=== PATIENT | male | born 1980 | race Caucasian/White ===

== ENCOUNTER 2017-11-15 16:03 | Inpatient (IN) | payer OTHER ==
[2017-11-15] MEDS ORDERED: PANTOPRAZOLE 40 MG/10 ML VIAL IVP STA (17:05)
[2017-11-15] MEDS ORDERED: SODIUM CHLORIDE 0.9% 1,000 ML IV ONE (17:05)
[2017-11-15] MEDS ORDERED: ONDANSETRON 4 MG/2 ML VIAL IVP STA (17:14)
--- NOTE | 2017-11-15 17:34 | ED ---
Psych HPI - General Source: patient, RN notes reviewed Mode of arrival: ambulatory <Lew Butler - Last Filed: 11/15/17 17:32> <Obi Ponce - Last Filed: 11/16/17 00:53> - General Chief Complaint: Psychiatric Symptoms Stated Complaint: poss alcohol poisening Time Seen by Provider: 11/15/17 17:04 - History of Present Illness Initial Comments: 37-year-old male presents emergency Department chief complaint of alcohol abuse , suicidal ideation. Patient states that he has been binging lately on vodka. Patient states he essentially has been drinking everyday since Monday. Patient admits to drinking a fifth of vodka today. Patient states he did have episode of emesis followed by multiple others and he felt that he saw some blood. Patient states that years ago he was told that he had very sees him [facility]. Patient states that they said no recurrence of bleeding and over a couple hours. Patient denies any current nausea, diarrhea constipation. He has mild epigastric discomfort. Denies any chest pain or shortness of breath. Patient states he is depressed worse with alcohol use and states that he is suicidal. (Lew Butler) - Related Data Home Medications Medication Instructions Recorded Confirmed Cetirizine HCl [Zyrtec] 10 mg PO DAILY 11/15/17 11/15/17 Previous Rx's Medication Instructions Recorded traZODone HCL [Desyrel] 100 mg PO HS #30 tab 07/13/15 Allergies Allergy/AdvReac Type Severity Reaction Status Date / Time blue dye Allergy Unknown Verified 11/15/17 17:27 pollen Allergy Unknown Uncoded 11/15/17 16:35 Review of Systems ROS Other: All systems not noted in ROS Statement are negative. <Lew Butler - Last Filed: 11/15/17 17:32> ROS Other: All systems not noted in ROS Statement are negative. <Obi Ponce - Last Filed: 11/16/17 00:53> ROS Statement: Those systems with pertinent positive or pertinent negative responses have been documented in the HPI. 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 Father Family Medical History: Liver Disease Additional Family Medical History / Comment(s): Father at age 53 from peritonitis with history of alcoholism. Brother(s) Additional Family Medical History / Comment(s): Brother has history of alcohol abuse. He does not have any sisters. He does not have any children. <Lew Butler - Last Filed: 11/15/17 17:32> General Exam Limitations: no limitations General appearance: alert, in no apparent distress Head exam: Present: atraumatic, normocephalic, normal inspection Eye exam: Present: normal appearance, PERRL, EOMI. Absent: scleral icterus, conjunctival injection, periorbital swelling ENT exam: Present: normal exam, normal oropharynx, mucous membranes moist Neck exam: Present: normal inspection. Absent: tenderness, meningismus, lymphadenopathy Respiratory exam: Present: normal lung sounds bilaterally. Absent: respiratory distress, wheezes, rales, rhonchi, stridor Cardiovascular Exam: Present: regular rate, normal rhythm, normal heart sounds. Absent: systolic murmur, diastolic murmur, rubs, gallop, clicks GI/Abdominal exam: Present: soft, tenderness (Mild epigastric), normal bowel sounds. Absent: distended, guarding, rebound, rigid Back exam: Absent: CVA tenderness (R), CVA tenderness (L) Neurological exam: Present: alert, oriented X3, CN II-XII intact <Lew Butler - Last Filed: 11/15/17 17:32> Vital Signs 11/15/17 16:31 Temperature 98.3 F Pulse Rate 106 H Respiratory 18 Rate Blood Pressure 134/103 O2 Sat by Pulse 96 Oximetry Medical Decision Making <Lew Butler - Last Filed: 11/15/17 17:32> - Lab Data Result diagrams: 11/15/17 17:28 11/15/17 17:28 <Obi Ponce - Last Filed: 11/16/17 00:53> - Medical Decision Making Patient's been observed here in the emergency room has had no nausea no vomiting. Admits he is feeling better. Patient did admit to having some suicidal thoughts. Patient's labs been reviewed are unremarkable. He was seen by psych services who recommends admission. Patient is willing to sign himself in. (Obi Ponce) - Lab Data Lab Results 11/15/17 11/15/17 11/15/17 Range/Units 17:28 17:28 17:28 WBC 7.6 (3.8-10.6) k/uL RBC 5.03 (4.30-5.90) m/uL Hgb 14.7 (13.0-17.5) gm/dL Hct 43.6 (39.0-53.0) % MCV 86.6 (80.0-100.0) fL MCH 29.1 (25.0-35.0) pg MCHC 33.6 (31.0-37.0) g/dL RDW 14.6 (11.5-15.5) % Plt Count 189 (150-450) k/uL Neutrophils % 43 % Lymphocytes % 44 % Monocytes % 6 % Eosinophils % 3 % Basophils % 1 % Neutrophils # 3.3 (1.3-7.7) k/uL Lymphocytes # 3.3 (1.0-4.8) k/uL Monocytes # 0.4 (0-1.0) k/uL Eosinophils # 0.2 (0-0.7) k/uL Basophils # 0.1 (0-0.2) k/uL PT 10.9 (9.0-12.0) sec INR 1.1 (<1.2) APTT 23.0 (22.0-30.0) sec Sodium 144 (137-145) mmol/L Potassium 3.7 (3.5-5.1) mmol/L Chloride 102 (98-107) mmol/L Carbon Dioxide 25 (22-30) mmol/L Anion Gap 17 mmol/L BUN 10 (9-20) mg/dL Creatinine 0.70 (0.66-1.25) mg/dL Est GFR (CKD-EPI)AfAm >90 (>60 ml/min/1.73 sqM) Est GFR (CKD-EPI)NonAf >90 (>60 ml/min/1.73 sqM) Glucose 112 H (74-99) mg/dL Calcium 8.7 (8.4-10.2) mg/dL Total Bilirubin 0.6 (0.2-1.3) mg/dL AST 92 H (17-59) U/L ALT 77 H (21-72) U/L Alkaline Phosphatase 71 (38-126) U/L Total Protein 7.5 (6.3-8.2) g/dL Albumin 4.4 (3.5-5.0) g/dL Lipase 245 (23-300) U/L Urine Color Urine Appearance (Clear) Urine pH (5.0-8.0) Ur Specific Bric[place] (1.001-1.035) Urine Protein (Negative) Urine Glucose (UA) (Negative) Urine Ketones (Negative) Urine Blood (Negative) Urine Nitrite (Negative) Urine Bilirubin (Negative) Urine Urobilinogen (<2.0) mg/dL Ur Leukocyte Esterase (Negative) Urine RBC (0-5) /hpf Urine WBC (0-5) /hpf Ur Squamous Epith Cells (0-4) /hpf Urine Mucus (None) /hpf Urine Opiates Screen (NotDetected) Ur Oxycodone Screen (NotDetected) Urine Methadone Screen (NotDetected) Ur Propoxyphene Screen (NotDetected) Ur Barbiturates Screen (NotDetected) U Tricyclic Antidepress (NotDetected) Ur Phencyclidine Scrn (NotDetected) Ur Amphetamines Screen (NotDetected) U Methamphetamines Scrn (NotDetected) U Benzodiazepines Scrn (NotDetected) Urine Cocaine Screen (NotDetected) U Marijuana (THC) Screen (NotDetected) 11/15/17 11/15/17 Range/Units 17:55 17:55 WBC (3.8-10.6) k/uL RBC (4.30-5.90) m/uL Hgb (13.0-17.5) gm/dL Hct (39.0-53.0) % MCV (80.0-100.0) fL MCH (25.0-35.0) pg MCHC (31.0-37.0) g/dL RDW (11.5-15.5) % Plt Count (150-450) k/uL Neutrophils % % Lymphocytes % % Monocytes % % Eosinophils % % Basophils % % Neutrophils # (1.3-7.7) k/uL Lymphocytes # (1.0-4.8) k/uL Monocytes # (0-1.0) k/uL Eosinophils # (0-0.7) k/uL Basophils # (0-0.2) k/uL PT (9.0-12.0) sec INR (<1.2) APTT (22.0-30.0) sec Sodium (137-145) mmol/L Potassium (3.5-5.1) mmol/L Chloride (98-107) mmol/L Carbon Dioxide (22-30) mmol/L Anion Gap mmol/L BUN (9-20) mg/dL Creatinine (0.66-1.25) mg/dL Est GFR (CKD-EPI)AfAm (>60 ml/min/1.73 sqM) Est GFR (CKD-EPI)NonAf (>60 ml/min/1.73 sqM) Glucose (74-99) mg/dL Calcium (8.4-10.2) mg/dL Total Bilirubin (0.2-1.3) mg/dL AST (17-59) U/L ALT (21-72) U/L Alkaline Phosphatase (38-126) U/L Total Protein (6.3-8.2) g/dL Albumin (3.5-5.0) g/dL Lipase (23-300) U/L Urine Color Yellow Urine Appearance Clear (Clear) Urine pH 6.0 (5.0-8.0) Ur Specific Bricelyn 1.020 (1.001-1.035) Urine Protein 3+ H (Negative) Urine Glucose (UA) Negative (Negative) Urine Ketones Negative (Negative) Urine Blood Small H (Negative) Urine Nitrite Negative (Negative) Urine Bilirubin Negative (Negative) Urine Urobilinogen <2.0 (<2.0) mg/dL Ur Leukocyte Esterase Negative (Negative) Urine RBC 3 (0-5) /hpf Urine WBC 2 (0-5) /hpf Ur Squamous Epith Cells 1 (0-4) /hpf Urine Mucus Many H (None) /hpf Urine Opiates Screen Not Detected (NotDetected) Ur Oxycodone Screen Not Detected (NotDetected) Urine Methadone Screen Not Detected (NotDetected) Ur Propoxyphene Screen Not Detected (NotDetected) Ur Barbiturates Screen Not Detected (NotDetected) U Tricyclic Antidepress Not Detected (NotDetected) Ur Phencyclidine Scrn Not Detected (NotDetected) Ur Amphetamines Screen Not Detected (NotDetected) U Methamphetamines Scrn Not Detected (NotDetected) U Benzodiazepines Scrn Not Detected (NotDetected) Urine Cocaine Screen Not Detected (NotDetected) U Marijuana (THC) Screen Not Detected (NotDetected) Disposition <Lew Butler - Last Filed: 11/15/17 17:32> Is patient prescribed a controlled substance at d/c from ED?: No Time of Disposition: 00:53 <Obi Ponce - Last Filed: 11/16/17 00:53> Clinical Impression: Suicidal ideation Disposition: ADMITTED IP TO THIS HOSP Condition: Stable Referrals: None,Stated [Primary Care Provider] - 1-2 days
[2017-11-15 17:44] LABS: Basophils # (A) 0.1 k/uL (0-0.2); Basophils % (A) 1 %; Eosinophils # (A) 0.2 k/uL (0-0.7); Eosinophils % (A) 3 %; HCT 43.6 % (39.0-53.0); HGB 14.7 gm/dL (13.0-17.5); Lymphocytes # (A) 3.3 k/uL (1.0-4.8); Lymphocytes % (A) 44 %; MCH 29.1 pg (25.0-35.0); MCHC 33.6 g/dL (31.0-37.0); MCV 86.6 fL (80.0-100.0); Mean Platelet Volume 7.8; Monocytes # (A) 0.4 k/uL (0-1.0); Monocytes % (A) 6 %; Neutrophils # (A) 3.3 k/uL (1.3-7.7); Neutrophils % (A) 43 %; Platelet Count 189 k/uL (150-450); RBC 5.03 m/uL (4.30-5.90); RDW 14.6 % (11.5-15.5); WBC 7.6 k/uL (3.8-10.6)
[2017-11-15 17:55] LABS: ALT 77 U/L (21-72); AST 92 U/L (17-59); Albumin 4.4 g/dL (3.5-5.0); Alkaline Phosphatase 71 U/L (38-126); Anion Gap 17 mmol/L; Blood Urea Nitrogen 10 mg/dL (9-20); Calcium 8.7 mg/dL (8.4-10.2); Carbon Dioxide 25 mmol/L (22-30); Chloride 102 mmol/L (98-107); Glucose 112 mg/dL (74-99); Lipase 245 U/L (23-300); Potassium 3.7 mmol/L (3.5-5.1); Sodium 144 mmol/L (137-145); Total Bilirubin 0.6 mg/dL (0.2-1.3); Total Protein 7.5 g/dL (6.3-8.2)
[2017-11-15 17:56] LABS: INR 1.1 (<1.2)
[2017-11-15 17:57] LABS: Prothrombin Time 10.9 sec (9.0-12.0)
[2017-11-15 18:35] LABS: Appearance,Urine Clear (Clear); Bilirubin,Urine Negative (Negative); Blood,Urine Small (Negative); Color,Urine Yellow; Glucose,Urine (UA) Negative (Negative); Ketones,Urine Negative (Negative); Leukocyte Esterase,Urine Negative (Negative); Mucus,Urine Many /hpf; Nitrite,Urine Negative (Negative); Protein,Urine 3+ (Negative); RBC,Urine 3 /hpf (0-5); Squamous Epithelial Cell,Urine 1 /hpf (0-4); Urobilinogen,Urine <2.0 mg/dL (<2.0); WBC,Urine 2 /hpf (0-5)
[2017-11-15 18:40] LABS: Amphetamine Screen,Urine Not Detected (NotDetected); Barbiturate Screen,Urine Not Detected (NotDetected); Benzodiazepines Screen,Urine Not Detected (NotDetected); Cocaine Screen,Urine Not Detected (NotDetected); Methadone Screen, Urine Not Detected (NotDetected); Opiate Screen,Urine Not Detected (NotDetected); Oxycodone Screen, Urine Not Detected (NotDetected); Phencyclidine Screen,Urine Not Detected (NotDetected); Tricyclic Antidepressant,Urine Not Detected (NotDetected); Urn Cannabinoid Scrn Not Detected (NotDetected)
[2017-11-15] MEDS ORDERED: FAMOTIDINE 20 MG/2 ML VIAL IV STA (22:34)
[2017-11-16] MEDS ORDERED: MAGNESIUM HYDROXIDE 2,400 MG/10 ML CUP PO PRN (01:01)
[2017-11-16] MEDS ORDERED: MAG HYDROX/AL HYDROX/SIMETH 30 ML CUP PO PRN (01:01)
[2017-11-16] MEDS ORDERED: LORazepam 2 MG/ML INJ IM PRN (01:04)
[2017-11-16] MEDS ORDERED: DIPHENOX-ATROP 2.5-0.025 MG 1 EACH TAB PO PRN (01:05)
[2017-11-16] MEDS: LORazepam 1 MG TAB PO PRN ×4 (02:02→20:21)
--- NOTE | 2017-11-16 07:16 | P.MDCNMH ---
History of Present Illness H&P Date: 11/16/17 Chief Complaint: medical management 37-year-old male with history of depression presented to the hospital for psychiatric evaluation due to overwhelming depression and suicide ideation. Patient also complains of some burning on his back from [place] the beach. He reported that he wanted to commit suicide so he is well really deep into the river with any change his mind in [place] back. Patient also has been going through binge drinking episode is been drinking over 3 pints of alcohol every day for the past 5 days. Patient reports history of alcohol withdrawals he is not sure if he had seizures before from that, he also reports history of his esophageal varices with history of GI bleeding. Currently is complaining of some epigastric pain and discomfort. He is also feeling nauseated. Otherwise patient denies any headache changes in his vision or hearing he denies any focal neurologic deficits he denies any chest pain or trouble breathing he denies any changes in his bowel habits or urinary habits he denies any melena or any fresh rectal bleed. Review of Systems Pertinent positives as noted in HPI. 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 Father Family Medical History: Liver Disease Additional Family Medical History / Comment(s): Father at age 53 from peritonitis with history of alcoholism. Brother(s) Additional Family Medical History / Comment(s): Brother has history of alcohol abuse. He does not have any sisters. He does not have any children. Medications and Allergies Home Medications Medication Instructions Recorded Confirmed Type traZODone HCL [Desyrel] 100 mg PO HS #30 tab 07/13/15 11/15/17 Rx Cetirizine HCl [Zyrtec] 10 mg PO DAILY 11/15/17 11/15/17 History Allergies Allergy/AdvReac Type Severity Reaction Status Date / Time blue dye Allergy Unknown Verified 11/15/17 17:27 pollen Allergy Unknown Uncoded 11/15/17 16:35 Physical Exam Vitals: Vital Signs Temp Pulse Pulse Resp BP BP Pulse Ox 11/16/17 06:42 150/87 11/16/17 06:32 98.5 F 113 H 18 146/120 11/16/17 01:44 98.2 F 109 H 16 162/85 97 11/16/17 00:55 98.6 F 104 H 17 140/69 99 11/15/17 16:31 98.3 F 106 H 18 134/103 96 Intake and Output 11/15/17 11/16/17 11/16/17 22:59 06:59 14:59 Other: Weight 129.274 kg 136.8 kg Constitutional: No acute distress, conversant Eyes: Anicteric sclerae, moist conjunctiva, no lid-lag Pupils equal round reactive to light ENMT: NC/AT Oropharynx clear, no erythema, or exudates Neck: Supple, FROM, no masses, or JVD No carotid bruits No thyromegaly Lungs: Clear to auscultation Clear to percussion Normal respiratory effort, no accessory muscle use Cardiovascular: Heart regular in rate and rhythm, No murmurs, gallops, or rubs No peripheral edema Abdominal: Soft Nontender, slight discomfort in the epigastric region, no guarding, rebound or rigidity Abdomen moving with respiration Normoactive bowel sounds No hepatomegaly, No splenomegaly No palpable mass No abdominal wall hernia noted Skin: There is erythema involving the whole back, no blistering, no skin breakage. Slightly uncomfortable to palpation Normal temperature, tone, texture, turgor No induration No subcutaneous nodules No lesions No ulcers Extremities: No digital cyanosis No clubbing Pedal pulses intact and symmetrical Radial pulses intact and symmetrical No calf tenderness Psychiatric: Alert and oriented to person, place and time Depressed affect Poor judgment Neuro Muscles Strength 5/5 in all 4 extremities Sensation to light touch grossly present throughout No focal sensory deficits Lymphatics: no palpable cervical or supraclavicular , or inguinal lymph nodes Cranial Nerve Examination - Cranial Nerves Cranial Nerve II- Optic: Intact Cranial Nerve III- Oculomotor: Intact Cranial Nerve IV- Trochlear: Intact Cranial Nerve V- Trigeminal: Intact Cranial Nerve - Abducens: Intact Cranial Nerve VII- Facial: Intact Cranial Nerve VIII- Auditory: Intact Cranial Nerve IX- Glossopharyngeal: Intact Cranial Nerve X- Vagus: Intact Cranial Nerve XI- Accessory: Intact Cranial Nerve XII- Hypoglossal: Intact Results CBC & Chem 7: 11/15/17 17:28 11/15/17 17:28 Labs: Abnormal Lab Results - Last 24 Hours (Table) 11/15/17 11/15/17 Range/Units 17:28 17:55 Glucose 112 H (74-99) mg/dL AST 92 H (17-59) U/L ALT 77 H (21-72) U/L Urine Protein 3+ H (Negative) Urine Blood Small H (Negative) Urine Mucus Many H (None) /hpf Assessment and Plan Assessment: 37-year-old male with history of depression presented to the hospital for suicidal ideation and overwhelming depression. Medicine was consulted for medical management Plan: #Depression and suicide ideation Management per psych Suicide precautions #Sunburn involving his back with no blisters no skin breakage Apply lotions and emollients as needed #Alcohol abuse pending withdrawal Benzodiazepines per CIWA scale Thiamine and folic acid Patient counseled to quit drinking #History of esophageal varices and GI bleeding Currently denies any GI bleeding PPI twice a day by mouth Symptomatic control of nausea and vomiting #Slightly elevated liver enzymes secondary to alcoholic hepatitis Continue to monitor #DVT prophylaxis patient is low risk and ambulatory Advanced diet as tolerated Thank you for allowing us to participate in the care of this patient. We will follow peripherally. Do not hesitate to contact us with questions. Someone can be reached from the [facility] hospitalist group at all hours of the day at [phone].
[2017-11-16] MEDS ORDERED: MINERAL OIL-WHITE PETROLATUM 120 GM JAR TOPICAL PRN (07:25)
[2017-11-16] MEDS ORDERED: PANTOPRAZOLE 40 MG TABLET PO SCH (07:30)
[2017-11-16] MEDS: PANTOPRAZOLE 40 MG TABLET PO SCH ×2 (08:46→17:10)
--- NOTE | 2017-11-16 10:03 | P.HP ---
Psychiatric H&P - . H&P Date: 11/16/17 History & Physical: Identification Data: The patient is a 37-year-old single male who has a history of an alcohol use disorder. He presented to psychiatric unit voluntarily with complaints of suicidal ideation. History of Present Illness: He presented to the emergency department with the complaint of "vomiting blood". During the triage assessment he complained of suicidal ideation and plan. Prior to admission he alleged that he attempted suicide by swimming out into the care of with a plan to "put myself orders of water to drown myself." He stated that he cannot control his drinking. "I have lost everything. I have lost jobs. My girlfriend. I have no place to live." He described feeling helpless, hopeless and worthless because he cannot stop drinking. As a result his alcohol use his girlfriend ended their relationship about 5 days prior to admission. 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 Since he left his girlfriend's home he has been sleeping in his truck. He described a pattern of relapsing alcohol use where he would drink for 1-2 weeks and then achieve abstinence for about 1 or 2 weeks. During the most recent lucas he was drinking approximately 1/2 gallon of vodka per day. He does not have full recollection of the events that transpired since he left his girlfriend's house. He described symptoms of alcohol withdrawal including nausea, vomiting, tremor, sweating, restlessness and sensitivity to light and sound. He denied experiencing tactile, auditory or visual hallucinations. He was fully oriented to person, place and time. He described symptoms of depression including sadness, hopelessness, helplessness and worthlessness. He feels guilty about his alcohol use and the problems that resulted from his alcohol use and ruminates about his past errors. He did not express delusions of guilt or hears accusatory or denunciatory voices or experiences threatening visual hallucinations. He described thoughts of suicide but denied current intent or plan. He described difficulty falling and staying asleep. He has decreased energy. He feels tense and nervous. He denied recent change in weight. He denied periods of elevated moods consistent with irwin or helped hypomania. He denied obsessions or compulsions. He denied experiencing such psychotic symptoms as ideas reference, thought insertion, thought broadcasting or thought control. Past Psychiatric History: This is his second admission to our psychiatric unit and the third admission overall. He was discharged from our unit in June 2015 to [facility] for substance abuse rehabilitation. After completing [facility] he went to a [facility], [facility], for 90 days. That 90 days was his longest periods of abstinence that he has achieved since he began using alcohol. Substance Use History: He began drinking alcohol when he was 15 years old. In retrospect, alcohol became a problem but he was in his 20s. He had one residential substance abuse treatment episode at [facility]. He attended Alcoholics Anonymous in the past but has not attended meetings since he left [facility]. He is never had a sponsor and never had a home group. He was diagnosed with ADHD in grade school and treated with psychostimulants. He talked about developing increasing use of Adderall in high school and college. He developed problems including multiple ER visits when he was in college because he was taken higher doses of Adderall than prescribed. He stopped using Adderall without professional intervention after he left college. He stated he stopped using Adderall because he was developing medical problems and "could not function" unless he used high doses of Adderall. Legal History: He had one OW conviction. 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 He is not on probation, pro or has pending charges. Family Substance Abuse and Mental Health History: His father, mother and brother has a history of alcohol use problems. His father as a result of alcohol liver disease. His brother achieved abstinence after attending to residential substance abuse treatment programs. Personal History: He was born and raised in [place] in an intact family. He has 1 brother. He graduated from high school and attended [employer]. He left college before obtaining a degree. 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 He lost a job because he stopped going to work during his drinking lucas. He described other jobs either due to absenteeism or showing up to work intoxicated. Mental Status Examination: He presented as a tall somewhat obese balding male who was pleasant on approach. He made eye contact and appeared to attend to the interview. He was tremulous and slightly diaphoretic. He had a distressed facial expression. He was alert and oriented to person, place and time. He has slight hand tremor. His speech was spontaneous with decreased rate, rhythm and volume. His affect was dysphoric but not intense or appropriate. He has suicidal ideation without intent or plan. He denied homicidal ideation. He expressed depressive cognitions including hopelessness, helplessness and worthlessness. He ruminated about his alcohol use and the consequences of his recurrent alcohol use. He did not express ideas reference, paranoid ideation or delusional thoughts. His thinking was abstract and associations were coherent, logical and goal directed. He did not express clang associations, perseveration, neologisms or blocking. He denied hallucinations and did not appear to be responding to internal stimuli. Global impression of intellect is average. He is aware of his alcohol use problems and need for treatment. Allergies Allergy/AdvReac Type Severity Reaction Status Date / Time blue dye Allergy Unknown Verified 11/15/17 17:27 pollen Allergy Unknown Uncoded 11/15/17 16:35 Vital Signs Temp 98.5 F 11/16/17 06:32 Pulse 113 H 11/16/17 06:32 Resp 18 11/16/17 06:32 BP 150/87 11/16/17 06:42 Pulse Ox 97 11/16/17 01:44 Intake & Output 11/15/17 11/16/17 11/16/17 18:59 06:59 18:59 Weight 129.274 kg 136.8 kg Laboratory Last Values WBC 7.6 k/uL (3.8-10.6) 11/15/17 17: RBC 5.03 m/uL (4.30-5.90) 11/15/17 17:28 Hgb 14.7 gm/dL (13.0-17.5) 11/15/17 17:28 Hct 43.6 % (39.0-53.0) 11/15/17 17:28 MCV 86.6 fL (80.0-100.0) 11/15/17 17: MCH 29.1 pg (25.0-35.0) 11/15/17 17:28 MCHC 33.6 g/dL (31.0-37.0) 11/15/17 17:28 RDW 14.6 % (11.5-15.5) 11/15/17 17: Plt Count 189 k/uL (150-450) 11/15/17 17:28 Neutrophils % 43 % 11/15/17 17:28 Lymphocytes % 44 % 11/15/17 17:28 Monocytes % 6 % 11/15/17 17:28 Eosinophils % 3 % 11/15/17 17:28 Basophils % 1 % 11/15/17 17:28 Neutrophils # 3.3 k/uL (1.3-7.7) 11/15/17 17:28 Lymphocytes # 3.3 k/uL (1.0-4.8) 11/15/17 17:28 Monocytes # 0.4 k/uL (0-1.0) 11/15/17 17:28 Eosinophils # 0.2 k/uL (0-0.7) 11/15/17 17:28 Basophils # 0.1 k/uL (0-0.2) 11/15/17 17:28 PT 10.9 sec (9.0-12.0) 11/15/17 17:28 INR 1.1 (<1.2) 11/15/17 17:28 APTT 23.0 sec (22.0-30.0) 11/15/17 17:28 Sodium 144 mmol/L (137-145) 11/15/17 17:28 Potassium 3.7 mmol/L (3.5-5.1) 11/15/17 17:28 Chloride 102 mmol/L (98-107) 11/15/17 17:28 Carbon Dioxide 25 mmol/L (22-30) 11/15/17 17:28 Anion Gap 17 mmol/L 11/15/17 17:28 BUN 10 mg/dL (9-20) 11/15/17 17:28 Creatinine 0.70 mg/dL (0.66-1.25) 11/15/17 17:28 Est GFR (CKD-EPI)AfAm >90 (>60 ml/min/1.73 sqM) 11/15/17 17:28 Est GFR (CKD-EPI)NonAf >90 (>60 ml/min/1.73 sqM) 11/15/17 17:28 Glucose 112 mg/dL (74-99) H 11/15/17 17:28 Calcium 8.7 mg/dL (8.4-10.2) 11/15/17 17:28 Total Bilirubin 0.6 mg/dL (0.2-1.3) 11/15/17 17:28 AST 92 U/L (17-59) H 11/15/17 17:28 ALT 77 U/L (21-72) H 11/15/17 17:28 Alkaline Phosphatase 71 U/L (38-126) 11/15/17 17:28 Total Protein 7.5 g/dL (6.3-8.2) 11/15/17 17: Albumin 4.4 g/dL (3.5-5.0) 11/15/17 17:28 Lipase 245 U/L (23-300) 11/15/17 17:28 Urine Color Yellow 11/15/17 17:55 Urine Appearance Clear (Clear) 11/15/17 17:55 Urine pH 6.0 (5.0-8.0) 11/15/17 17:55 Ur Specific [place] 1.020 (1.001-1.035) 11/15/17 17:55 Urine Protein 3+ (Negative) H 11/15/17 17:55 Urine Glucose (UA) Negative (Negative) 11/15/17 17:55 Urine Ketones Negative (Negative) 11/15/17 17:55 Urine Blood Small (Negative) H 11/15/17 17:55 Urine Nitrite Negative (Negative) 11/15/17 17:55 Urine Bilirubin Negative (Negative) 11/15/17 17:55 Urine Urobilinogen <2.0 mg/dL (<2.0) 11/15/17 17:55 Ur Leukocyte Esterase Negative (Negative) 11/15/17 17:55 Urine RBC 3 /hpf (0-5) 11/15/17 17:55 Urine WBC 2 /hpf (0-5) 11/15/17 17:55 Ur Squamous Epith Cells 1 /hpf (0-4) 11/15/17 17:55 Urine Mucus Many /hpf (None) H 11/15/17 17:55 Urine Opiates Screen Not Detected (NotDetected) 11/15/17 17:55 Ur Oxycodone Screen Not Detected (NotDetected) 11/15/17 17:55 Urine Methadone Screen Not Detected (NotDetected) 11/15/17 17:55 Ur Propoxyphene Screen Not Detected (NotDetected) 11/15/17 17:55 Ur Barbiturates Screen Not Detected (NotDetected) 11/15/17 17:55 U Tricyclic Antidepress Not Detected (NotDetected) 11/15/17 17:55 Ur Phencyclidine Scrn Not Detected (NotDetected) 11/15/17 17:55 Ur Amphetamines Screen Not Detected (NotDetected) 11/15/17 17:55 U Methamphetamines Scrn Not Detected (NotDetected) 11/15/17 17:55 U Benzodiazepines Scrn Not Detected (NotDetected) 11/15/17 17:55 Urine Cocaine Screen Not Detected (NotDetected) 11/15/17 17:55 U Marijuana (THC) Screen Not Detected (NotDetected) 11/15/17 17:55 11/16/17 09:28 11/16/17 09:58 Assessment and Plan Assessment: He is a 37-year-old single male who has a history of an alcohol use disorder. [facility] ideation and depression after losing his job, his girlfriend ending their relationship and losing his home. He recognizes his alcohol use problem but admits that he is unable to control his alcohol use. He has mild/moderate alcohol withdrawal symptoms uncomplicated by delirium. He has symptoms of a depressive disorder. There is no evidence of psychosis or history suggestive of irwin or hypomania. He should be treated inpatient basis with combination of psychopharmacology and multimodal therapy. He would benefit from another admission to a residential rehabilitation program. (1) Suicidal ideation Current Visit: Yes Status: Acute Priority: Medium Code(s): R45.851 - SUICIDAL IDEATIONS SNOMED Code(s): 6094466 (2) Alcohol withdrawal Current Visit: Yes Status: Acute Priority: Medium Code(s): F10.239 - ALCOHOL DEPENDENCE WITH WITHDRAWAL, UNSPECIFIED SNOMED Code(s): 444508687 (3) Alcohol use disorder, severe, dependence Current Visit: Yes Status: Chronic Priority: High Code(s): F10.20 - ALCOHOL DEPENDENCE, UNCOMPLICATED SNOMED Code(s): 944990790 (4) Depressive disorder Current Visit: Yes Status: Chronic Priority: High Code(s): F32.9 - MAJOR DEPRESSIVE DISORDER, SINGLE EPISODE, UNSPECIFIED SNOMED Code(s): 49201613 Plan: Admit to the psychiatric unit. Safety precautions. CIWA protocol with Ativan for alcohol withdrawal. Lomotil and Zofran for symptomatic relief of nausea and diarrhea. Consult medicine for admission initial physical exam and medical history. flume worker to complete psychosocial assessment. Transfer to medicine service if he develops autonomic instability or signs and symptoms of delirium. Consider a trial of an antidepressant to his depressive symptoms persist beyond the acute withdrawal stage. Encourage participation in therapeutic groups and activities as tolerated. Refer for residential substance abuse treatment. Evaluate clinical status and response to treatment on a daily basis.
[2017-11-16 11:04] LABS: Appearance,Urine Clear (Clear); Bilirubin,Urine Negative (Negative); Blood,Urine Small (Negative); Color,Urine Yellow; Glucose,Urine (UA) Negative (Negative); Hyaline Casts,Urine 1 /lpf (0-2); Ketones,Urine 2+ (Negative); Leukocyte Esterase,Urine Negative (Negative); Mucus,Urine Occasional /hpf; Nitrite,Urine Negative (Negative); Protein,Urine 1+ (Negative); RBC,Urine 4 /hpf (0-5); Specific Gravity,Urine 1.022 (1.001-1.035); WBC,Urine 1 /hpf (0-5)
[2017-11-16] MEDS: ACETAMINOPHEN TAB 325 MG TAB PO PRN (20:20)
[2017-11-17] MEDS: LORazepam 1 MG TAB PO PRN ×3 (08:45→21:28)
[2017-11-17] MEDS: PANTOPRAZOLE 40 MG TABLET PO SCH ×2 (08:46→20:05)
[2017-11-17] MEDS: ACETAMINOPHEN TAB 325 MG TAB PO PRN (08:47)
--- NOTE | 2017-11-17 16:46 | P.PN ---
Subjective Progress Note Date: 11/17/17 Principal diagnosis: Alcohol use disorder severe, alcohol withdrawal, unspecified depressive disorder I reviewed the medical record, interviewed the patient and discuss his treatment and treatment plan during team meeting. He described mild symptoms of alcohol withdrawal including some sweating, tremor and diarrhea. His CIWA score ranged from 3-11 suggesting mild alcohol withdrawal symptoms. He denied experiencing auditory, visual or tactile disturbances. He denied feeling depressed or having thoughts of or suicide. The social work faculty member informed the treatment team that he has an admission to [facility] already scheduled for November 19. We talked about his admission date and we agreed the best for him to keep the admission. We will arrange for him to be discharged on Monday unless his condition deteriorates and the covering psychiatrist deems it best for him to remain in the hospital longer. Objective - Vital Signs Vital signs: Vital Signs Temp 98.9 F 11/17/17 06:33 Pulse 110 H 11/17/17 14:14 Resp 16 11/17/17 14:14 BP 156/81 11/17/17 14:14 Pulse Ox 97 11/16/17 01:44 - Psychiatric Psychiatric Comment(s): He presented as a tall casually dressed and casually groomed moderate obese male with male pattern balding. He was pleasant on approach, attended to the interview and made eye contact. He had no distinguishing features or prominent physical abnormalities. He had a very fine hand tremor. He was not diaphoretic or restless. His speech was spontaneous with normal rate , rhythm and volume. His affect was blunted and slightly depressed. He denied suicidal ideation or wishes. He denied feeling hopeless or helpless. He did not express ideas reference, paranoid ideation or delusional thoughts. His thinking was abstract and his associations were coherent and logical. He did not appear to be responding to internal stimuli. - Labs CBC & Chem 7: 11/15/17 17:28 11/15/17 17:28 Assessment and Plan Assessment: He is experiencing mild symptoms of alcohol withdrawal uncomplicated by delirium or psychosis. He is denying suicidal ideation, plan or intent. (1) Suicidal ideation Current Visit: Yes Status: Acute Priority: Medium Code(s): R45.851 - SUICIDAL IDEATIONS SNOMED Code(s): 3681278 (2) Alcohol withdrawal Current Visit: Yes Status: Acute Priority: Medium Code(s): F10.239 - ALCOHOL DEPENDENCE WITH WITHDRAWAL, UNSPECIFIED SNOMED Code(s): 437012495 (3) Alcohol use disorder, severe, dependence Current Visit: Yes Status: Chronic Priority: High Code(s): F10.20 - ALCOHOL DEPENDENCE, UNCOMPLICATED SNOMED Code(s): 414894703 (4) Depressive disorder Current Visit: Yes Status: Chronic Priority: High Code(s): F32.9 - MAJOR DEPRESSIVE DISORDER, SINGLE EPISODE, UNSPECIFIED SNOMED Code(s): 74375672 Plan: Continue psychiatric hospitalization. Continue safety precautions. Continue CIWA protocol with Ativan. Discharge on November 19 unless his condition deteriorates.
[2017-11-18] MEDS: LORazepam 1 MG TAB PO PRN ×2 (01:10→21:05)
[2017-11-18] MEDS: PANTOPRAZOLE 40 MG TABLET PO SCH ×2 (08:06→16:33)
[2017-11-18 11:02] VITALS: BMI 39.7
[2017-11-18 17:06] VITALS: RESP 16
[2017-11-18] MEDS: ACETAMINOPHEN TAB 325 MG TAB PO PRN (21:06)
--- NOTE | 2017-11-18 22:02 | P.PN ---
Progress Note - Text Progress Note Date: 11/18/17 Patient was seen today. He reports feeling nervous about going to [facility] tomorrow. He reports he still feels little messed up from using alcohol and coming off of it. He however rates his depression as 2/ 10, 1 being the best and 10 being the worst. He reports he is been able to sleep better. He denies symptoms of psychosis or irwin. 37 year old male. He appeared his stated age in good grooming and hygiene. He is pleasant and co-operative. He maintains good eye contact . No abnormal movements noted. His mood is reported as decent and stated he had a visitor today whom he hadnt seen in over 25 years. His affect is appropriate. His thought process in linear and goal directed. He denied current auditory or visual hallucaitnions. He denies paranoia. He is alert and oriented. X 4. Has fair insight and judgement. Patient will be going to [facility] tomorrow. No behavioral problems reported.
[2017-11-19] MEDS: LORazepam 1 MG TAB PO PRN (03:53)
[2017-11-19 06:35] VITALS: BP 141/61; PULSE 70; TEMP 98.5
[2017-11-19] MEDS: PANTOPRAZOLE 40 MG TABLET PO SCH (08:00)
--- NOTE | 2017-11-24 17:29 | P.DS ---
Providers Date of admission: 11/16/17 00:58 Attending physician: Titi Gallardo MD Consults: 11/16/17 01:01 Consult Physician Routine Consulting Provider: [facility] Consult Reason/Comments: Medical management Do you want consulting provider notified?: Yes Primary care physician: Stated None - Discharge Diagnosis(es) (1) Suicidal ideation Status: Resolved Priority: Low (2) Alcohol withdrawal Status: Resolved Priority: Medium (3) Alcohol use disorder, severe, dependence Status: Chronic Priority: High (4) Depressive disorder Status: Chronic Priority: Medium Hospital Course: The patient is a 37-year-old male who has a history of alcohol use disorder. He presented to the psychiatric unit voluntarily with complaints of depression. He initially presented to the emergency department with complaint of vomiting blood. During the triage assessment he complained of suicidal ideation and plan. He described feeling hopeless, worthless and hopeless because he cannot stop using alcohol. As a result of his alcohol use his girlfriend ended their relationship 5 days prior to admission. 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 Since he left his girlfriend' s home he admits sleeping in his truck. He described a pattern of alcohol use where he would drink alcohol for 1-2 weeks and then achieve abstinence for one to 2 days. During the most recent [place] he was consuming approximately 1/2 gallon of vodka per day. He does not have recollection of events that transpired since he left his girlfriend's home. We admitted him to the psychiatric unit under care of this fiction and nonfiction prose writer. We provided a biopsychosocial assessment. The customer service sales consultant asic engineer completed initial physical exam and medical history and diagnosis sunburn, history of esophageal cc GI bleed, elevated liver enzymes secondary to alcoholic hepatitis. We treated this alcohol withdrawal with CIWA and Ativan. He had minimal to moderate alcohol withdrawal symptoms uncomplicated by psychosis or delirium. As his withdrawal symptoms resolved his mood improved. We treated complacent insomnia with trazodone 100 mg daily. He had contacted [facility] prior to admission and scheduled admission to our program on 11/19/2017. The time of discharge she presented as a casually dressed and groomed moderately obese male who was pleasant and cooperative. He showed a lot of value psychomotor activity. His speech was spontaneous with normal rate , rhythm and volume. His affect was blunted but stable and appropriate. He denied suicidal ideation or wishes. He denied homicidal ideation. He did not express ideas reference, paranoid ideation or delusional thoughts. His thinking was concrete but his associations were coherent and logical. He denied hallucinations and did not appear to be responding to internal stimuli. Patient Condition at Discharge: Stable Plan - Discharge Summary Discharge Rx Participant: No New Discharge Prescriptions: New Pantoprazole [Protonix] 40 mg PO AC-BID #60 tablet. Continue Cetirizine HCl [Zyrtec] 10 mg PO DAILY Discontinued traZODone HCL [Desyrel] 100 mg PO HS #30 tab No Action traZODone HCL 100 mg PO HS Folic Acid 1 mg PO DAILY Discharge Medication List Cetirizine HCl [Zyrtec] 10 mg PO DAILY 11/15/17 [History] Pantoprazole [Protonix] 40 mg PO AC-BID #60 tablet. 11/17/17 [Rx] Folic Acid 1 mg PO DAILY 11/18/17 [History] traZODone HCL 100 mg PO HS 11/18/17 [History] Follow up Appointment(s)/Referral(s): [facility]Outside] - 11/19/17 9:15 am (Pt. has Intake at [facility] on 11/19/17 at 0915. Pt's S.O., Sid to transport at [address] [facility].) None,Stated [Primary Care Provider] - 1-2 days Patient Instructions/Handouts: Depression (DC), Suicide Prevention for Adults ( DC) Activity/Diet/Wound Care/Special Instructions: attend after care appointments as scheduled. Activity and diet as tolerated. no drugs or Alcohol not prescribed by physician. no guns or weapons in the home. Take all medication as prescribed. Return to the if symptoms worsen. Discharge Disposition: HOME SELF-CARE
== END 2017-11-19 08:15 | disposition home or self-care (01) | DRG 880 ==
LOC: EC 16:03 → 3MHU 11-16 00:58
PROVIDERS: ADMIT Psychiatry & Neurology Psychiatry; ATTEND Psychiatry & Neurology Psychiatry
DX: R45.851 Suicidal ideations (principal); F10.239 Alcohol dependence with withdrawal, unspecified; Q60.0 Renal agenesis, unilateral; E66.9 Obesity, unspecified; F32.9 Major depressive disorder, single episode, unspecified; F90.9 Attention-deficit hyperactivity disorder, unspecified type; J30.1 Allergic rhinitis due to pollen; Z68.39 Body mass index [BMI] 39.0-39.9, adult; Z81.1 Family history of alcohol abuse and dependence; Z87.891 Personal history of nicotine dependence; Z88.8 Allergy status to other drugs, medicaments and biological substances; Z59.8 Other problems related to housing and economic circumstances; Z79.899 Other long term (current) drug therapy
CPT/HCPCS: 36415; 80053; 80306; 81001; 82075; 83690; 84443; 85025; 85610; 85730; 96360; 96374; 96375; 99285

== ENCOUNTER 2019-04-07 15:02 | Inpatient (IN) | payer BC, MEDICAID, OTHER ==
--- NOTE | 2019-04-07 16:36 | ED ---
Psych HPI - General Source: patient, family Mode of arrival: ambulatory <Vera Garcia - Last Filed: 04/07/19 19:28> <Baldomero Lott - Last Filed: 04/07/19 23:58> - General Stated Complaint: Mental Health Time Seen by Provider: 04/07/19 15:16 - History of Present Illness Initial Comments: Patient is a 38-year-old male presenting to the emergency department for a psychiatric evaluation. Patient states he has been struggling to stop drinking and often has relapses approximately once a month. Patient states he has been drinking for the last 3 days and then yesterday he lost his job. Patient states "he is scared that if he goes home he will develop suicidal thoughts." Patient admitted to drinking vodka just prior to arrival to ER. Patient denies any current suicidal thoughts and has no plan. Patient denies homicidal thoughts. Patient's girlfriend is here with him now. Patient denies fever, chills, pain anywhere. He has no other complaints at this time. Upon arrival to the ER, vital signs are stable. (Vera Garcia) - Related Data Home Medications Medication Instructions Recorded Confirmed Halobetasol Propionate 1 applic TOPICAL DAILY PRN 04/07/19 04/07/19 Naltrexone HCl [Revia] 50 mg PO DAILY 04/07/19 04/07/19 Allergies Allergy/AdvReac Type Severity Reaction Status Date / Time blue dye Allergy Unknown Verified 04/07/19 16:38 pollen Allergy Unknown Uncoded 11/18/17 11:05 Review of Systems ROS Other: All systems not noted in ROS Statement are negative. <Vera Garcia - Last Filed: 04/07/19 19:28> ROS Other: All systems not noted in ROS Statement are negative. <Baldomero Lott - Last Filed: 04/07/19 23:58> ROS Statement: Those systems with pertinent positive or pertinent negative responses have been documented in the HPI. 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 Father Family Medical History: Liver Disease Additional Family Medical History / Comment(s): Father at age 53 from peritonitis with history of alcoholism. Brother(s) Additional Family Medical History / Comment(s): Brother has history of alcohol abuse. He does not have any sisters. He does not have any children. <Vera Garcia - Last Filed: 04/07/19 19:28> General Exam Limitations: no limitations <Vera Garcia - Last Filed: 04/07/19 19:28> - General Exam Comments Initial Comments: GENERAL: Well-nourished, teary-eyed on exam. HEAD: Atraumatic, normocephalic. EYES: Pupils equal round and reactive to light, extraocular movements intact, sclera anicteric, conjunctiva are normal. ENT: TMs normal, nares patent, oropharynx clear without exudates. Moist mucous membranes. NECK: Normal range of motion, supple without lymphadenopathy or JVD. LUNGS: Breath sounds clear to auscultation bilaterally and equal. No wheezes rales or rhonchi. HEART: Regular rate and rhythm without murmurs, rubs or gallops. ABDOMEN: Soft, nontender, normoactive bowel sounds. No guarding, no rebound. No masses appreciated. : Deferred EXTREMITIES: Normal range of motion, no pitting or edema. No clubbing or cyanosis. NEUROLOGICAL: Cranial nerves II through XII grossly intact. Normal speech, normal gait. PSYCH: Depressed mood, teary-eyed. SKIN: Warm, Dry, normal turgor, no rashes or lesions noted. (Vera Garcia) Course <Vera Garcia - Last Filed: 04/07/19 19:28> <Baldomero Lott - Last Filed: 04/07/19 23:58> Vital Signs 04/07/19 04/07/19 04/07/19 15:20 20:04 21:04 Temperature 98.3 F Pulse Rate 99 Respiratory 18 17 18 Rate Blood Pressure 152/91 O2 Sat by Pulse 95 Oximetry - Reevaluation(s) Reevaluation #1: 04/07/19 16:37 Patient is resting comfortably. Patient will be sober at approximately 10:30 this evening. 04/07/19 19:29 Patient continues to be resting comfortably. No complaints at this time. (Vera Garcia) Reevaluation #2: 04/07/19 23:58 Patient's medically clear for psychiatric evaluation (Baldomero Lott) Medical Decision Making <Baldomero Lott - Last Filed: 04/07/19 23:58> - Medical Decision Making 78 male seen evaluated with psychiatry will admit for psychiatric inpatient treatment and evaluation (Baldomero Lott) Disposition <Vera Garcia - Last Filed: 04/07/19 19:28> Is patient prescribed a controlled substance at d/c from ED?: No <Baldomero Lott - Last Filed: 04/07/19 23:58> Clinical Impression: Alcohol intoxication, Depression, Depressive disorder, Suicidal ideation Disposition: TRANSFER TO PSYCH HOSP/UNIT Condition: Fair
[2019-04-07] MEDS ORDERED: MAGNESIUM HYDROXIDE 2,400 MG/10 ML CUP PO PRN (23:48)
[2019-04-07] MEDS ORDERED: MAG HYDROX/AL HYDROX/SIMETH 30 ML CUP PO PRN (23:48)
[2019-04-07] MEDS ORDERED: ZIPRASIDONE 20 MG VIAL IM PRN (23:48)
[2019-04-08] MEDS ORDERED: DIAZEPAM 5 MG TAB PO STA (00:15)
[2019-04-08] MEDS: ACETAMINOPHEN TAB 325 MG TAB PO PRN ×2 (01:19→12:55)
[2019-04-08 01:32] VITALS: BMI 37.4
[2019-04-08] MEDS: LORazepam 1 MG TAB PO PRN ×2 (06:25→21:28)
[2019-04-08 07:42] LABS: ALT 46 U/L (21-72); AST 39 U/L (17-59); African American GFR (CKD) >90 (>60 ml/min/1.73 sqM); Albumin 4.5 g/dL (3.5-5.0); Alkaline Phosphatase 63 U/L (38-126); Anion Gap 10 mmol/L; Basophils % (A) 1 %; Blood Urea Nitrogen 13 mg/dL (9-20); Calcium 9.3 mg/dL (8.4-10.2); Carbon Dioxide 28 mmol/L (22-30); Chloride 102 mmol/L (98-107); Cholesterol 200 mg/dL (<200); Eosinophils # (A) 0.1 k/uL (0-0.7); Eosinophils % (A) 2 %; Glucose 109 mg/dL (74-99); HCT 42.3 % (39.0-53.0); HDL Cholesterol 87 mg/dL (40-60); HGB 14.3 gm/dL (13.0-17.5); LDL Cholesterol,Calculated 98 mg/dL (0-99); Lymphocytes # (A) 1.4 k/uL (1.0-4.8); Lymphocytes % (A) 22 %; MCH 29.3 pg (25.0-35.0); MCHC 33.7 g/dL (31.0-37.0); MCV 86.9 fL (80.0-100.0); Mean Platelet Volume 7.1; Monocytes # (A) 0.4 k/uL (0-1.0); Monocytes % (A) 7 %; Neutrophils # (A) 4.2 k/uL (1.3-7.7); Neutrophils % (A) 68 %; Non-African American GFR(CKD) >90 (>60 ml/min/1.73 sqM); Platelet Count 156 k/uL (150-450); Potassium 3.9 mmol/L (3.5-5.1); RBC 4.86 m/uL (4.30-5.90); RDW 13.5 % (11.5-15.5); Sodium 140 mmol/L (137-145); Total Bilirubin 1.3 mg/dL (0.2-1.3); Total Protein 7.6 g/dL (6.3-8.2); Triglycerides 77 mg/dL (<150); WBC 6.2 k/uL (3.8-10.6)
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
[2019-04-08] MEDS: THIAMINE 100 MG TAB PO SCH (12:54)
[2019-04-08 18:02] LABS: Hemoglobin A1C 5.8 % (4.0-6.0)
--- NOTE | 2019-04-08 20:41 | P.MDCNMH ---
History of Present Illness H&P Date: 04/08/19 Chief Complaint: Depression Patient is a 38-year-old male with a known history of psoriasis, esophageal varices, alcohol withdrawal seizures and solitary kidney and also chronic back pain came to ER for psychiatric evaluation. Patient has been struggling to stop drinking and often has relapses approximately once a month. Patient has been drinking for the last 2 days and he lost his job yesterday. Patient was scared and concerned that if he goes home he will develop suicidal thoughts. Patient came to ER with his girlfriend. Otherwise denied any complaints of chest pain or shortness of breath. No fever no chills. No cough or sputum production. No dysuria or hematuria. No headache or dizziness or lightheadedness. Review of Systems Constitutional: Patient denies any fever or chills . No generalized weakness or weight loss. Abdomen: Patient denied nausea vomiting and diarrhea and abdominal pain. Cardiovascular: Patient denies any chest pain or short of breath no palpitations. Respiratory: patient denied any cough is from production. No shortness of breath Neurologic: Patient denied any numbness or tingling headache. Musculoskeletal: Patient denies any complaints of joint swelling or deformity. Skin: Negative Psychiatric: Negative Endocrine: No heat or cold intolerance. No recent weight gain. Genitourinary: No dysuria or hematuria. 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 Father Family Medical History: Liver Disease Additional Family Medical History / Comment(s): Father at age 53 from peritonitis with history of alcoholism. Brother(s) Additional Family Medical History / Comment(s): Brother has history of alcohol abuse. He does not have any sisters. He does not have any children. Medications and Allergies Home Medications Medication Instructions Recorded Confirmed Type Halobetasol Propionate 1 applic TOPICAL DAILY PRN 04/07/19 04/08/19 History Naltrexone HCl [Revia] 50 mg PO DAILY 04/07/19 04/08/19 History Allergies Allergy/AdvReac Type Severity Reaction Status Date / Time blue dye Allergy Unknown Unknown Verified 04/08/19 01:35 pollen Allergy Unknown Uncoded 11/18/17 11:05 Physical Exam Vitals: Vital Signs Temp Pulse Pulse Pulse Resp BP BP 04/08/19 07:01 98.6 F 102 H 16 04/08/19 02:39 98.6 F 96 16 04/08/19 01:23 98.3 F 80 18 148/89 04/08/19 00:34 98.3 F 79 19 140/74 04/07/19 21:04 18 04/07/19 20:04 17 BP Pulse Ox 04/08/19 07:01 161/82 04/08/19 02:39 133/86 04/08/19 01:23 04/08/19 00:34 98 04/07/19 21:04 04/07/19 20:04 PHYSICAL EXAMINATION: Patient is lying in the bed comfortably, no acute distress, awake alert and oriented.. HEENT: Normocephalic. Neck is supple. Pupils reactive. Nostrils clear. Oral cavity is moist. Ears reveal no drainage. Neck reveals no JVD, carotid bruits, or thyromegaly. CHEST EXAMINATION: Trachea is central. Symmetrical expansion. Lung avina clear to auscultation and percussion. CARDIAC: Normal S1, S2 with no gallops. No murmurs ABDOMEN: Soft. Bowel sounds normal. No organomegaly. No abdominal bruits. Extremities: reveal no edema. No clubbing or cyanosis Neurologically awake, alert, oriented x3 with well-coordinated movements. No focal deficits noted Skin: No rash or skin lesions. Psychiatric: Coperative. Nonsuicidal Musculoskeletal: No joint swelling or deformity. Normal range of motion. Cranial Nerve Examination - Cranial Nerves Cranial Nerve I- Olfactory: Intact Cranial Nerve II- Optic: Intact Cranial Nerve III- Oculomotor: Intact Cranial Nerve IV- Trochlear: Intact Cranial Nerve V- Trigeminal: Intact Cranial Nerve - Abducens: Intact Cranial Nerve VII- Facial: Intact Cranial Nerve VIII- Auditory: Intact Cranial Nerve IX- Glossopharyngeal: Intact Cranial Nerve X- Vagus: Intact Cranial Nerve XI- Accessory: Intact Cranial Nerve XII- Hypoglossal: Intact Results CBC & Chem 7: 04/08/19 07:14 04/08/19 07:14 Labs: Abnormal Lab Results - Last 24 Hours (Table) 04/08/19 Range/Units 07:14 Glucose 109 H (74-99) mg/dL Cholesterol 200 H (<200) mg/dL HDL Cholesterol 87 H (40-60) mg/dL Assessment and Plan Assessment: Acute alcohol intoxication and suicidal thoughts. Severe alcohol abuse History of esophageal varices. History of alcohol withdrawal seizures Solitary kidney Chronic back pain Previous history of smoking Psoriasis. Morbid obesity with BMI 38.3 Hyperlipidemia with LDL 87 DVT prophylaxis with ambulation Plan: Patient be continued on current psychiatric management. Alcohol withdrawal protocol. Continue with pain management with Tylenol. We'll continue to follow and further recommendations based on the clinical course. Patient was counseled for alcohol abstinence and also weight loss. Thank you for your consult. Time with Patient: Greater than 30
[2019-04-09 06:24] VITALS: RESP 16
[2019-04-09] MEDS: THIAMINE 100 MG TAB PO SCH (09:14)
--- NOTE | 2019-04-09 09:55 | P.PN ---
Progress Note - Text Interval history: The patient is found in the hallway he follows me to an interview room. He indicates that his mood is improving. We had a lengthy discussion regarding his alcohol use. Again he describes a series of episodes of self sabotage. He states that March is a tough month due to prior losses. We discussed the possibility of using naltrexone and he will give that consideration. We discussed his participation in AA. He described not going because of the humble-based ideology but we discussed that he could still attend and take advantage of other help AA can provide. He states that he did call [facility] to participate in the initial screening but after 45 minutes they were disconnected. He is unsure if that calls completed. We will discuss with social work. He is hoping his girlfriend will come up for a support meeting. Mental status exam: The patient is a tall overweight male appearing his stated age. He is dressed in hospital gowns. Eye contact is appropriate speech is fluent spontaneous nonpressured. He describes a mood that is depressed but he feels safe. He demonstrates a constricted affect throughout the session. He is endorsing no acute suicidal or homicidal ideation intent or plan. He is reporting no auditory or visual hallucinations or any specific delusions. He demonstrates no observed evidence of psychosis. Thought process is linear he demonstrates no tangential thinking loose associations or flight of ideas. He does not appear hypomanic or manic. He is demonstrating no objective evidence of tremor related to alcohol withdrawal. He demonstrates no verbal or physical aggressiveness. Insight and judgment improving. He is oriented to person place and date. Plan: The patient does not wish to take a medication for depression. We reviewed his alcohol use disorder symptoms. He will consider having her start naltrexone we will discuss that further. He has placed a call with [facility] for inpatient chemical dependency treatment. We will follow-up on his placement date. Social work will be asked to arrange a support meeting involving his girlfriend. Vital signs reviewed they're within normal limits and his CIWA scores are within normal limits. He appears to be clinically stabilizing I expect he'll be appropriate for discharge sometime this week. We will continue to monitor for safety and encourage full participation in the milieu.
[2019-04-09] MEDS: LORazepam 1 MG TAB PO PRN ×2 (13:49→22:07)
[2019-04-10] MEDS: THIAMINE 100 MG TAB PO SCH (08:21)
[2019-04-10] MEDS: LORazepam 1 MG TAB PO PRN ×2 (10:34→21:48)
--- NOTE | 2019-04-10 10:50 | P.PN ---
Progress Note - Text Interval history: The patient is found in the hallway he follows me to an interview room. He indicates his mood is improving. I was informed that he was approved for inpatient chemical dependency treatment at [facility] starting tomorrow. Social work has been in contact with the patient's girlfriend who will provide transportation and she agrees with the treatment plan. The patient continues to feel that he does not need any prescribed psychotropic medication. He has been attending groups. He indicates he is eating and sleep has been stable. Mental status exam: The patient is a tall overweight male appearing his stated age. He is dressed in his own clothing today. Hygiene grooming adequate. Speech is fluent spontaneous nonpressured. He indicates his mood is improving. He is reporting no acute suicidal ideation intent or plan and no homicidal ideation intent or plan. He is endorsing no auditory or visual hallucinations or any specific delusions. There is no observed evidence of psychosis. He demonstrates no tangential thinking loose associations or flight of ideas. He does not appear hypomanic or manic. Insight and judgment improving. He remains oriented to person place and date. He demonstrates no verbal or physical aggressiveness. He Plan: The patient will continue participating in the milieu. We will continue monitoring him for safety. I anticipate discharging him tomorrow morning and he will be transported to [facility] for inpatient chemical dependency treatment. Vital signs reviewed. CIWA scores reviewed.
[2019-04-11 06:28] VITALS: BP 154/67; PULSE 77; TEMP 98.4
[2019-04-11] MEDS: THIAMINE 100 MG TAB PO SCH (08:23)
[2019-04-11] MEDS ORDERED: NALTREXONE HCL 50 MG TAB PO SCH (09:00)
--- NOTE | 2019-04-11 09:09 | P.DS ---
Providers Date of admission: 04/07/19 23:23 Expected date of discharge: 04/11/19 Attending physician: Nicholas Phillips Consults: 04/07/19 23:48 Consult Physician Routine Consulting Provider: Kodak Voss Consult Reason/Comments: medical management Do you want consulting provider notified?: Yes, Notify in am Primary care physician: Lindsey Alvarado - Discharge Diagnosis(es) (1) Depression Current Visit: Yes Status: Acute Priority: High (2) Alcohol use disorder, severe, dependence Current Visit: No Status: Chronic Priority: High Hospital Course: Brief summary of admission note: This patient is a 38-year-old single male who was admitted to the mental health unit through the emergency room for suicidal ideation. The patient presented to the hospital intoxicated with alcohol. He reported that he had been binge drinking for at least 1 week out of the month consuming half a gallon of vodka. He indicates he has been blacking out frequently. He has been making poor decisions due to his alcohol use such as driving while intoxicated and he presented to work intoxicated which led to him being fired. He felt more overwhelmed after losing his job. This behavior has caused significant strain on his relationship with his girlfriend. He reported poor sleep appetite decreased energy. For full detail please refer to my psychiatric evaluation dated 04/08/2019. Summary of hospital course: The patient was admitted to the mental health unit voluntarily. We reviewed his presenting symptoms and treatment options. He was adamant about not starting an antidepressant medication. He was seen by internal medicine for routine history and physical exam. Social work met with the patient to complete a psychosocial assessment and begin discharge planning. We discussed having him participate in inpatient chemical dependency treatment and he was agreeable. He spoke with the access line for the intake and arrangements have been made for him to start inpatient chemical dependency treatment today. The patient's girlfriend is willing to transfer him directly there after being discharged from our facility. We reviewed reasons that he drinks. He does not feel that it is due to a major depressive disorder or anxiety symptoms. We discussed a variety coping skills he may employ in place of drinking. We discussed initiating naltrexone and he was agreeable. He requested trazodone for sleep at night. The patient reported a complete resolution of any suicidal ideation and felt safe to transition to [facility]. Mental status exam: The patient is a tall overweight male appearing his stated age. He is balding he is wearing appeared he wears eyeglasses. He is dressed in his own clothing wearing a T-shirt and jeans. Eye contact is good speech is fluent spontaneous nonpressured. He reports his mood is much better he denies having any hopelessness thinking or any suicidal ideation intent or plan. He reports no auditory or visual hallucinations or any specific delusions. There is no observed evidence of psychosis. Thought process is linear he demonstrates no tangential thinking loose associations or flight of ideas. He does not appear hypomanic or manic. Insight and judgment have improved. He demonstrates no verbal or physical aggressiveness. He remains oriented to person place and date. He demonstrates a brighter affect. He reports future oriented thoughts. He verbalizes that he plans to complete inpatient chemical dependency treatment obtaining work and work on his relationship with his girlfriend. Impressions 1. Depression unspecified, rule out major depressive disorder recurrent, alcohol use disorder severe Plan: The patient will be discharged mental health unit today. His girlfriend will transport him from here to [facility] for inpatient chemical dependency treatment that is scheduled to start today. The patient is agreeable to restarting naltrexone 50 mg daily and he requested trazodone 50 mg at bedtime for sleep. At this time there is no imminent safety risk he is appropriate for transition to [facility]. He is instructed to abstain from any alcohol or marijuana or illicit drugs. We discussed that these well provoked mood symptoms and elevate his safety risk. He is instructed to return to the hospital with any acute safety concerns. Patient Condition at Discharge: Stable Plan - Discharge Summary Discharge Rx Participant: No New Discharge Prescriptions: New traZODone HCL [Desyrel] 50 mg PO HS #30 tab Continue Halobetasol Propionate 1 applic TOPICAL DAILY PRN PRN Reason: Rash Naltrexone HCl [Revia] 50 mg PO DAILY #30 tab Discharge Medication List Halobetasol Propionate 1 applic TOPICAL DAILY PRN 04/07/19 [History] Naltrexone HCl [Revia] 50 mg PO DAILY #30 tab 04/11/19 [Rx] traZODone HCL [Desyrel] 50 mg PO HS #30 tab 04/11/19 [Rx] Follow up Appointment(s)/Referral(s): [facility] [Outside] - 04/11/19 12:00 pm Lindsey Alvarado MD [Primary Care Provider] - 1-2 days Activity/Diet/Wound Care/Special Instructions: Activity and diet as tolerated. Avoid the use of street drugs and alcohol. Take all medications as prescribed. When you are in need of refills on your medications please contact your medical provider and/or outpatient psychiatrist to have this done. Please go to scheduled outpatient appointment for aftercare treatment. If symptoms return or become worse, call the crisis line at and/or go to the nearest emergency room for evaluation.
[2019-04-11] MEDS ORDERED: traZODone HCL 50 MG TAB PO SCH (21:00)
== END 2019-04-11 10:40 | disposition home or self-care (01) | DRG 881 ==
LOC: EC 15:02 → 3MHU 23:23
PROVIDERS: ADMIT Psychiatry & Neurology Psychiatry; ATTEND Psychiatry & Neurology Psychiatry
DX: F32.9 Major depressive disorder, single episode, unspecified (principal); R45.851 Suicidal ideations; Q60.0 Renal agenesis, unilateral; F10.229 Alcohol dependence with intoxication, unspecified; E66.3 Overweight; F41.9 Anxiety disorder, unspecified; G89.29 Other chronic pain; L40.9 Psoriasis, unspecified; M54.9 Dorsalgia, unspecified; Z56.0 Unemployment, unspecified; Z79.899 Other long term (current) drug therapy; Z87.891 Personal history of nicotine dependence; Z68.38 Body mass index [BMI] 38.0-38.9, adult; Z91.048 Other nonmedicinal substance allergy status; Z81.1 Family history of alcohol abuse and dependence; Z83.79 Family history of other diseases of the digestive system; Y90.7 Blood alcohol level of 200-239 mg/100 ml
CPT/HCPCS: 80053; 80061; 82075; 83036; 84443; 85025; 99284